=== PATIENT | female | born 1995 | race African-American/Black ===

== ENCOUNTER 2018-04-24 23:45 | Emergency (ER) | payer OTHER ==
[~2018-04-24] VITALS: Ht 157.5 cm; Wt 86.2 kg
[2018-04-25 00:27] LABS: ABSOLUTE NEUTROPHILS 5.4 thou/uL (1.4-8.2); BASOPHILS 0.7 % (0.0-2.0); HEMATOCRIT 32.6 % (37.0-47.0); HEMOGLOBIN 10.6 gm/dL (12.0-15.0); LYMPHOCYTES 25.5 % (24.0-44.0); MCH 23.9 pg (26.0-34.0); MCHC 32.6 g/dL (28.0-37.0); MCV 73.4 fL (80.0-100.0); MONOCYTES 6.4 % (1.0-8.0); PLATELET COUNT 273 thou/uL (150-400); POLYS 65.4 % (36.0-66.0); RBC 4.44 mil/uL (4.20-5.00); RDW 16.5 % (10.5-14.5); WBC 8.3 thou/uL (4.0-11.0)
[2018-04-25 00:30] LABS: CALCIUM 9.1 mg/dL (8.5-10.1); CREATININE 0.8 mg/dL (0.6-1.0); POTASSIUM 3.6 mmol/L (3.5-5.1)
[2018-04-25 00:36] LABS: ALBUMIN 3.5 g/dL (3.4-5.0); TOTAL BILIRUBIN 0.2 mg/dL (<0.1-1.0); TOTAL PROTEIN 8.6 g/dL (6.4-8.2)
[2018-04-25 01:01] VITALS: BP 137/88
--- NOTE | 2018-04-25 08:19 | EKG ---
[address] [place] [address] ELECTROCARDIOGRAM REPORT Name: ROGERSJEFFERY Room #: [facility] Cristobal#: [id number] Admission: 04/24/18 Attend Phys: Discharge: 04/25/18 Date of : [birth year] Report #: [id number] THIS REPORT FOR: //name// [facility] ED Test Date: 2018-04-25 Test Time: 00:14:11 Pat Name: JEFFERY ROGERS Department: Room: Gender: F Computer Applications Instructor: NIKKY : 1995 Requested By: Shivam Hansen Order Number: [id number] MD: Prieto Brown Measurements Intervals [place] Rate: 87 P: 46 [place]: 153 QRS: 39 QRSD: 86 T: 43 QT: 360 QTc: 433 Interpretive Statements Sinus rhythm Normal tracing No previous ECG available for comparison Electronically Signed On 04-25-2018 8:18:51 AUTO PARTS CLERK by Prieto Brown [email or web address] <ELECTRONICALLY SIGNED> By: Prieto Brown MD, [facility] 04/25/18 0818 0014 0014 Prieto Brown MD, FACC /EPI
== END 2018-04-25 01:02 | disposition home or self-care (01) ==
LOC: ER 23:45
PROVIDERS: Emergency Medicine
DX: R07.89 Other chest pain (principal); F41.9 Anxiety disorder, unspecified

== ENCOUNTER 2019-03-09 12:11 | Emergency (ER) | payer OTHER ==
[~2019-03-09] VITALS: Ht 157.5 cm; Wt 83.5 kg
[2019-03-09] MEDS ORDERED: IBUPROFEN 600600 M1 PO (14:21)
[2019-03-09 15:19] VITALS: BP 134/81
--- NOTE | 2019-03-10 09:40 | EKG ---
[address] [place] [address] ELECTROCARDIOGRAM REPORT Name: SUEJEFFERY Room #: [facility] Cristobal#: [id number] Admission: 03/09/19 Attend Phys: Discharge: 03/09/19 Date of : [birth year] Report #: [id number] THIS REPORT FOR: //name// [facility] ED Test Date: 2019-03-09 Test Time: 12:15:40 Pat Name: JEFFERY ROGERS Department: Room: Gender: F Data Software Engineer: [facility] : 1995 Requested By: Caroline Erikcson Order Number: [id number] MD: Prieto Brown Measurements Intervals [place] Rate: 86 P: 65 DE: 140 QRS: 58 QRSD: 69 T: 58 QT: 358 QTc: 429 Interpretive Statements Sinus rhythm Normal tracing Compared to ECG 04/25/2018 00:14:11 No significant changes Electronically Signed On 03-10-2019 9:40:04 SYSTEM TECHNOLOGIST by Prieto Brown [email or web address] <ELECTRONICALLY SIGNED> By: Prieto Brown MD, [facility] 03/10/19 0940 1215 1215 Prieto Brown MD, FACC /EPI
== END 2019-03-09 15:20 | disposition home or self-care (01) ==
LOC: ER 12:11
DX: R07.89 Other chest pain (principal); J06.9 Acute upper respiratory infection, unspecified

== ENCOUNTER 2019-06-26 22:56 | Emergency (ER) | payer OTHER ==
[~2019-06-26] VITALS: Ht 157.5 cm; Wt 81.7 kg
[~2019-06-26 22:56] MED LIST: IBUPROFEN 600600 M1 PO
[2019-06-26 23:53] LABS: URINE BILIRUBIN NEGATIVE (Negative); URINE BLOOD NEGATIVE (Negative); URINE CLARITY CLEAR; URINE COLOR YELLOW; URINE GLUCOSE-RANDOM* NEGATIVE (Negative); URINE KETONES NEGATIVE (Negative); URINE LEUKOCYTES-REFLEX NEGATIVE (Negative); URINE NITRITE-REFLEX NEGATIVE (Negative); URINE PROTEIN (DIPSTICK) NEGATIVE (Negative); URINE SPECIFIC GRAVITY 1.025 (1.005-1.035); URINE UROBILINOGEN 0.2 E.U./dl (0.2-1.0)
[2019-06-26 23:54] LABS: ABSOLUTE NEUTROPHILS 3.9 thou/uL (1.4-8.2); BASOPHILS 0.7 % (0.0-2.0); EOSINOPHILS 3.7 % (0.0-3.0); HEMATOCRIT 35.9 % (37.0-47.0); HEMOGLOBIN 11.7 gm/dL (12.0-15.0); LYMPHOCYTES 33.7 % (24.0-44.0); MCHC 32.6 g/dL (28.0-37.0); MCV 79.7 fL (80.0-100.0); MONOCYTES 7.4 % (1.0-8.0); PLATELET COUNT 253 thou/uL (150-400); POLYS 54.5 % (36.0-66.0); RDW 14.5 % (10.5-14.5); WBC 7.1 thou/uL (4.0-11.0)
[2019-06-26 23:57] LABS: ANION GAP 9 mmol/L (7-16); BUN 11 mg/dL (7-18); CALCIUM 8.4 mg/dL (8.5-10.1); CHLORIDE 100 mmol/L (98-107); CO2 25 mmol/L (21-32); CREATININE 0.9 mg/dL (0.6-1.0); GLUCOSE 103 mg/dL (74-106); POTASSIUM 3.8 mmol/L (3.5-5.1); SODIUM 134 mmol/L (136-145)
[2019-06-27 00:06] LABS: ALBUMIN 3.3 g/dL (3.4-5.0); LIPASE 83 U/L (73-393); MAGNESIUM 1.7 mg/dL (1.8-2.4); SGOT 20 U/L (15-37); SGPT 15 U/L (30-65); TOTAL BILIRUBIN < 0.1 mg/dL (<0.1-1.0); TOTAL PROTEIN 7.6 g/dL (6.4-8.2); TROPONIN-I <0.06 ng/mL (<0.06)
[2019-06-27] MEDS ORDERED: PRILOSEC OTC20 MG PO (00:54)
[2019-06-27] MEDS ORDERED: BUTALB-APAP-CA1 EACH PO (00:54)
[2019-06-27] MEDS ORDERED: ONDANSETRON ODT8 MG PO (00:54)
[2019-06-27 01:17] VITALS: BP 140/88
--- NOTE | 2019-06-27 08:13 | EKG ---
[facility] [place] [address] ELECTROCARDIOGRAM REPORT Name: JEFFERY ROGERS Heather Room #: [facility]#: [id number] Admission: 06/26/19 Attend Phys: Discharge: 06/27/19 Date of : [birth year] Report #: [id number] THIS REPORT FOR: cc: NO FAMILY PHYSICIAN or PCP NO FAMILY PHYSICIAN or PCP Prieto Brown MD [facility] ~ THIS REPORT FOR: //name// [facility] ED Test Date: 2019-06-26 Test Time: 23:03:34 Pat Name: JEFFERY ROGERS Department: Room: Gender: Manager Rn: nam : 1995 Requested By: Robin Avalos Order Number: [id number] MD: Prieto Brown Measurements Intervals [place] Rate: 76 P: -14 ME: 152 QRS: 34 QRSD: 82 T: 36 QT: 374 QTc: 421 Interpretive Statements Sinus rhythm Borderline T abnormalities, anterior leads Compared to ECG 03/09/2019 12:15:40 T-wave abnormality now present Electronically Signed On 06-27-2019 8:11:49 CDT by Prieto Brown [email or web address] <ELECTRONICALLY SIGNED> By: Prieto Brown MD, FACC 06/27/19 08 02 02 Prieto Brown MD, [facility] /EPI
== END 2019-06-27 01:18 | disposition home or self-care (01) ==
LOC: ER 22:56
PROVIDERS: Emergency Medicine
DX: K21.9 Gastro-esophageal reflux disease without esophagitis (principal); R51 Headache; R11.2 Nausea with vomiting, unspecified; E66.9 Obesity, unspecified; Z68.32 Body mass index [BMI] 32.0-32.9, adult